=== PATIENT | male | born 1980 | race Hispanic/Latino ===

== ENCOUNTER → 2023-10-22 | Outpatient (CLI) | payer OTHER ==
[~2023-10-22] VITALS: Ht 177.8 cm; Wt 161.6 kg
[2023-10-22 14:55] VITALS: BP 163/94; PULSE 64; RESP 20
[2023-10-22 14:56] LABS: BASOPHILS # (AUTO) 0.04 K/uL (0.00-0.20); BASOPHILS % (AUTO) 0.6 % (0.0-5.0); EOSINOPHILS # (AUTO) 0.15 K/uL (0.00-0.70); EOSINOPHILS % (AUTO) 2.1 % (0.0-8.0); HEMATOCRIT 44.8 % (42-54); IMMATURE GRANULOCYTE ABSOLUTE 0.04 K/uL (0-1); LYMPHOCYTES # (AUTO) 1.9 K/uL (1.0-4.8); MEAN CORPUSCULAR HEMOGLOBIN 22.4 pg (27.0-33.0); MEAN CORPUSCULAR VOLUME 72.1 fL (79-99); MONOCYTES # (AUTO) 0.6 K/uL (0.1-1.0); MONOCYTES % (AUTO) 8.4 % (3.0-13.0); NEUTROPHILS # (AUTO) 4.4 K/uL (1.8-7.7); NEUTROPHILS % (AUTO) 61.3 % (40.0-77.0); PLATELET COUNT (AUTO) 245 K/uL (130-400); RED BLOOD CELL COUNT(AUTO) 6.21 MIL/uL (4.50-6.20); RED CELL DISTRIBUTION WIDTH 18.7 % (11.0-15.5); WHITE BLOOD COUNT (AUTO) 7.1 K/uL (4.8-10.8)
[2023-10-22 15:08] LABS: INR <= 0.93 (0.85-1.15); PROTHROMBIN TIME 10.6 SEC (9.6-11.6)
[2023-10-22 15:09] LABS: PARTIAL THROMBOPLASTIN TIME 27.1 SEC (26.3-35.5)
[2023-10-22 15:22] LABS: ALBUMIN 3.8 g/dL (3.5-5.0); BILIRUBIN,TOTAL 0.7 mg/dL (0.2-1.0); TOTAL PROTEIN, SERUM 7.7 g/dL (6.0-8.3)
== END | disposition home or self-care (01) ==
LOC: DAH 10:00 → EDSTATUS 14:00
PROVIDERS: ATTEND Surgery
DX: K51.918 Ulcerative colitis, unspecified with other complication (principal)
CPT/HCPCS: 86900; 80053; 85025; 85610; 85730; 86850; 86901; 36415; 93005; A6260

== ENCOUNTER 2023-11-02 17:00 | Inpatient (IN) | payer OTHER ==
[~2023-11-02] VITALS: Ht 180.3 cm; Wt 160.9 kg
[2023-11-02 13:39] LABS: BASOPHILS # (AUTO) 0.03 K/uL (0.00-0.20); BASOPHILS % (AUTO) 0.5 % (0.0-5.0); EOSINOPHILS # (AUTO) 0.21 K/uL (0.00-0.70); EOSINOPHILS % (AUTO) 3.3 % (0.0-8.0); HEMATOCRIT 43.9 % (42-54); IMMATURE GRANULOCYTE ABSOLUTE 0.02 K/uL (0-1); LYMPHOCYTES % (AUTO) 31.1 % (21.0-51.0); MEAN CORPUSCULAR HEMOGLOBIN 22.7 pg (27.0-33.0); MEAN CORPUSCULAR HGB CONC 30.8 g/dL (32.0-36.0); MEAN CORPUSCULAR VOLUME 73.9 fL (79-99); MONOCYTES # (AUTO) 0.6 K/uL (0.1-1.0); MONOCYTES % (AUTO) 8.7 % (3.0-13.0); NEUTROPHILS # (AUTO) 3.5 K/uL (1.8-7.7); NEUTROPHILS % (AUTO) 56.1 % (40.0-77.0); PLATELET COUNT (AUTO) 224 K/uL (130-400); RED BLOOD CELL COUNT(AUTO) 5.94 MIL/uL (4.50-6.20); RED CELL DISTRIBUTION WIDTH 18.2 % (11.0-15.5); WHITE BLOOD COUNT (AUTO) 6.3 K/uL (4.8-10.8)
[2023-11-02 13:50] LABS: INR <= 0.93 (0.85-1.15); PROTHROMBIN TIME 10.5 SEC (9.6-11.6)
[2023-11-02 13:53] LABS: ALBUMIN 3.5 g/dL (3.5-5.0); BILIRUBIN,TOTAL 0.4 mg/dL (0.2-1.0); POTASSIUM 4.2 mmol/L (3.5-5.1); TOTAL PROTEIN, SERUM 7.3 g/dL (6.0-8.3)
[2023-11-02 14:04] VITALS: BP 170/84; PULSE 67; RESP 18
[2023-11-06] VITALS (21 sets, daily range): BP systolic 132–183; BP diastolic 60–102; PULSE 69–94; RESP 12–23; O2SAT 95
[2023-11-06] MEDS: MEROPENEM 1 GM VIAL IVPB SCH (08:00)
[2023-11-06] MEDS: LACTATED RINGERS 1000ML 1,000 ML IV ONE (09:02)
[2023-11-06] MEDS: MEROPENEM 1 GM VIAL ONE (09:02)
[2023-11-06] MEDS ORDERED: LIDOCAINE PF 100MG/5ML (2%) SYRINGE 5ML ONE (12:13)
[2023-11-06] MEDS ORDERED: DEXAMETHASONE SOD PHOSPHATE 10MG/ML 1ML VIAL ONE (12:13)
[2023-11-06] MEDS ORDERED: MIDAZOLAM HCL 1 MG/ML 2ML VIAL ONE (12:15)
[2023-11-06] MEDS ORDERED: GLYCOPYRROLATE 0.2 MG/ML 5 ML VIAL ONE (12:15)
[2023-11-06] MEDS ORDERED: NEOSTIGMINE METHYLSULFATE 1MG/ML IV ONE (12:15)
[2023-11-06] MEDS ORDERED: SUCCINYLCHOLINE CHLORIDE 20 MG/ML 10 ML VIAL ONE (12:15)
[2023-11-06] MEDS ORDERED: ONDANSETRON 4MG INJ ONE ×3 (12:15→20:34)
[2023-11-06] MEDS ORDERED: PROPOFOL 10 MG/ML 20ML VIAL IV ONE (12:15)
[2023-11-06] MEDS ORDERED: ROCURONIUM BROMIDE 10MG/1ML 5ML VL ONE ×3 (12:16→17:56)
[2023-11-06] MEDS ORDERED: FENTANYL CITRATE PF 50 MCG/1 ML 5ML AMP IV ONE (12:16)
[2023-11-06] MEDS ORDERED: BUPIVACAINE/PF 0.5% 30ML VIAL ONE (12:22)
[2023-11-06] MEDS ORDERED: LIDOCAINE HCL 1% 20 ML VIAL ONE (12:22)
[2023-11-06] MEDS: LIDOCAINE HCL 1% 20 ML VIAL MISC ONE (12:49)
[2023-11-06] MEDS: BUPIVACAINE/PF 0.5% 30ML VIAL INJ ONE ×2 (12:51→13:23)
[2023-11-06] MEDS: MEROPENEM 1 GM VIAL IVPB ONE (12:55)
[2023-11-06] MEDS: INDOCYANINE GREEN 25 MG VIAL IJ ONE (13:16)
[2023-11-06] MEDS: LIDOCAINE HCL 1% 20 ML VIAL INJ ONE (13:23)
[2023-11-06] MEDS: SUGAMMADEX SODIUM 200 MG/2 ML VIAL IV ONE (19:51)
[2023-11-06] MEDS ORDERED: FENTANYL CITRATE PF 50 MCG/1 ML 2ML VIAL ONE (20:35)
[2023-11-06] MEDS ORDERED: ACETAMINOPHEN 650 MG SUPPOSITORY RC SCH (21:00)
[2023-11-06] MEDS ORDERED: ACETAMINOPHEN 650 MG SUPPOSITORY RC PRN (21:00)
[2023-11-06] MEDS: ONDANSETRON 4MG INJ ONE (21:54)
[2023-11-06] MEDS: ACETAMINOPHEN 1,000 MG/100 ML VIAL IV ONE (21:55)
[2023-11-06] MEDS: MEPERIDINE-PF 25 MG/ML SYG ONE (21:55)
[2023-11-06] MEDS: LABETALOL 20MG SYG IV ONE (22:29)
[2023-11-06] MEDS: HYDROMORPHONE 1 MG INJ ONE (22:30)
[2023-11-06] MEDS: GABAPENTIN 100 MG CAPSULE PO SCH (23:39)
[2023-11-07] VITALS (14 sets, daily range): BP systolic 133–183; BP diastolic 65–102; PULSE 86–100; RESP 17–20; O2SAT 95–96
[2023-11-07] MEDS: LACTATED RINGERS 1000ML 1,000 ML IV SCH (00:04)
[2023-11-07] MEDS: ONDANSETRON 4MG INJ IVP PRN (00:48)
[2023-11-07] MEDS: HYDROMORPHONE 0.5 MG SYG (0.5MG/0.5ML) IVP PRN (02:39)
[2023-11-07 04:00] LABS: BASOPHILS # (AUTO) 0.01 K/uL (0.00-0.20); BASOPHILS % (AUTO) 0.1 % (0.0-5.0); IMMATURE GRANULOCYTE ABSOLUTE 0.07 K/uL (0-1); LYMPHOCYTES # (AUTO) 0.8 K/uL (1.0-4.8); LYMPHOCYTES % (AUTO) 6.6 % (21.0-51.0); MEAN CORPUSCULAR HEMOGLOBIN 22.9 pg (27.0-33.0); MEAN CORPUSCULAR HGB CONC 31.4 g/dL (32.0-36.0); MONOCYTES % (AUTO) 8.3 % (3.0-13.0); NEUTROPHILS # (AUTO) 9.8 K/uL (1.8-7.7); NEUTROPHILS % (AUTO) 84.4 % (40.0-77.0); PLATELET COUNT (AUTO) 224 K/uL (130-400); RED BLOOD CELL COUNT(AUTO) 5.89 MIL/uL (4.50-6.20); RED CELL DISTRIBUTION WIDTH 18.4 % (11.0-15.5); WHITE BLOOD COUNT (AUTO) 11.6 K/uL (4.8-10.8)
[2023-11-07] MEDS ORDERED: POTASSIUM CHLORIDE 20MEQ/100ML 100 ML IV PRN (04:30)
[2023-11-07] MEDS ORDERED: GLUCAGON 1MG KIT 1 MG ML IM PRN (04:30)
[2023-11-07] MEDS ORDERED: MAGNESIUM 2GM PREMIX 50ML 50 ML IV PRN (04:30)
[2023-11-07] MEDS ORDERED: KCL 20 MEQ ERTAB PO PRN (04:30)
[2023-11-07] MEDS ORDERED: DEXTROSE 50%-WATER 50 ML DISP.SYRIN IV PRN (04:30)
[2023-11-07] MEDS ORDERED: POTASSIUM CHLORIDE 10% ELIXIR 20 MEQ/15 ML UDCUP PO PRN (04:30)
[2023-11-07 04:35] LABS: CREATININE 1.2 mg/dL (0.5-1.5); POTASSIUM 3.9 mmol/L (3.5-5.1)
[2023-11-07 04:39] LABS: THYROID STIMULATING HORMONE 0.58 uIU/mL (0.36-3.74)
[2023-11-07 04:47] LABS: HEMOGLOBIN A1C 7.2 % (4.0-6.0)
[2023-11-07] MEDS: INSULIN HUMULIN R 100 UNIT/ML 3ML SQ SCH (06:43)
[2023-11-07] MEDS: OXYCODONE HCL 5 MG TAB PO PRN (08:09)
[2023-11-07] MEDS: FAMOTIDINE 20MG VIAL IV SCH (08:11)
[2023-11-07] MEDS: ENOXAPARIN SODIUM 40 MG/0.4 ML SYRINGE SQ SCH (08:12)
[2023-11-07] MEDS ORDERED: ACETAMINOPHEN WITH CODEINE 1 TAB TAB PO PRN (11:00)
[2023-11-07] MEDS: SIMETHICONE 80 MG TAB.CHEW PO SCH (12:07)
[2023-11-07] MEDS: HYDRALAZINE 20MG/ML VIAL IV PRN (16:40)
[2023-11-07] MEDS: ACETAMINOPHEN WITH CODEINE 1 TAB TAB PO PRN (19:34)
[2023-11-08 04:41] VITALS: BP 155/89; PULSE 91; RESP 19
[2023-11-08] MEDS: METRONIDAZOLE 500MG/100ML BAG 100 ML IVPB SCH (05:10)
[2023-11-08 05:16] LABS: BASOPHILS # (AUTO) 0.03 K/uL (0.00-0.20); BASOPHILS % (AUTO) 0.3 % (0.0-5.0); EOSINOPHILS # (AUTO) 0.01 K/uL (0.00-0.70); EOSINOPHILS % (AUTO) 0.1 % (0.0-8.0); HEMATOCRIT 41.5 % (42-54); IMMATURE GRANULOCYTE ABSOLUTE 0.05 K/uL (0-1); LYMPHOCYTES # (AUTO) 1.3 K/uL (1.0-4.8); LYMPHOCYTES % (AUTO) 12.7 % (21.0-51.0); MEAN CORPUSCULAR HEMOGLOBIN 23.2 pg (27.0-33.0); MEAN CORPUSCULAR HGB CONC 31.3 g/dL (32.0-36.0); MEAN CORPUSCULAR VOLUME 74.1 fL (79-99); MONOCYTES % (AUTO) 9.9 % (3.0-13.0); NEUTROPHILS # (AUTO) 8.1 K/uL (1.8-7.7); NEUTROPHILS % (AUTO) 76.5 % (40.0-77.0); PLATELET COUNT (AUTO) 201 K/uL (130-400); RED CELL DISTRIBUTION WIDTH 18.6 % (11.0-15.5); WHITE BLOOD COUNT (AUTO) 10.5 K/uL (4.8-10.8)
[2023-11-08 05:20] LABS: MAGNESIUM 1.9 mg/dL (1.80-2.40)
[2023-11-08 08:20] VITALS: BP 162/97; PULSE 93; RESP 18
[2023-11-08 11:00] VITALS: BP 157/98; PULSE 81; RESP 18
[2023-11-08] MEDS: LEVOFLOXACIN 750 MG/D5W 150 ML 150 ML IV SCH (11:01)
[2023-11-08] MEDS: DIPHENOXYLATE HCL/ATROPINE 2.5/0.025 MG TAB PO SCH (11:05)
[2023-11-08 16:41] VITALS: BP 143/100; PULSE 77; RESP 18
[2023-11-08 19:15] VITALS: O2SAT 98
[2023-11-08 20:00] VITALS: BP 142/76; PULSE 79; RESP 20
[2023-11-09] VITALS: BP 157/22; PULSE 89; RESP 20
[2023-11-09 04:00] VITALS: BP 157/86; PULSE 74; RESP 18
[2023-11-09 04:28] LABS: BASOPHILS # (AUTO) 0.06 K/uL (0.00-0.20); BASOPHILS % (AUTO) 0.6 % (0.0-5.0); EOSINOPHILS # (AUTO) 0.12 K/uL (0.00-0.70); EOSINOPHILS % (AUTO) 1.1 % (0.0-8.0); HEMATOCRIT 40.5 % (42-54); IMMATURE GRANULOCYTE ABSOLUTE 0.04 K/uL (0-1); LYMPHOCYTES # (AUTO) 2.1 K/uL (1.0-4.8); LYMPHOCYTES % (AUTO) 19.8 % (21.0-51.0); MEAN CORPUSCULAR HEMOGLOBIN 23.3 pg (27.0-33.0); MEAN CORPUSCULAR HGB CONC 32.1 g/dL (32.0-36.0); MEAN CORPUSCULAR VOLUME 72.5 fL (79-99); MONOCYTES % (AUTO) 9.3 % (3.0-13.0); NEUTROPHILS # (AUTO) 7.3 K/uL (1.8-7.7); NEUTROPHILS % (AUTO) 68.8 % (40.0-77.0); PLATELET COUNT (AUTO) 224 K/uL (130-400); RED BLOOD CELL COUNT(AUTO) 5.59 MIL/uL (4.50-6.20); RED CELL DISTRIBUTION WIDTH 18.1 % (11.0-15.5); WHITE BLOOD COUNT (AUTO) 10.6 K/uL (4.8-10.8)
[2023-11-09 04:39] LABS: MAGNESIUM 1.9 mg/dL (1.80-2.40); POTASSIUM 3.6 mmol/L (3.5-5.1)
[2023-11-09 08:00] VITALS: BP 154/86; PULSE 71; RESP 19; O2SAT 94
[2023-11-09] MEDS: AMLODIPINE 5 MG TAB PO ONE (11:57)
[2023-11-09 12:00] VITALS: BP 143/90; PULSE 68; RESP 19
[2023-11-10] MEDS ORDERED: AMLODIPINE 5 MG TAB PO SCH (09:00)
== END 2023-11-09 13:00 | disposition home or self-care (01) | DRG 330 ==
LOC: DAHIP 11-06 08:17 → 4DH 11-06 23:00
PROVIDERS: ADMIT Surgery; ATTEND Surgery
PROC: 0D1B0Z4 Bypass Ileum to Cutaneous, Open Approach (ICD-10-PCS; 2023-11-06)
PROC: 0DJD8ZZ Inspection of Lower Intestinal Tract, Via Natural or Artificial Opening Endoscopic (ICD-10-PCS; 2023-11-06)
PROC: 8E0W0CZ Robotic Assisted Procedure of Trunk Region, Open Approach (ICD-10-PCS; 2023-11-06)
PROC: 0DTE0ZZ Resection of Large Intestine, Open Approach (ICD-10-PCS; principal; 2023-11-06 12:49)
DX: K51.812 Other ulcerative colitis with intestinal obstruction (principal); Z68.42 Body mass index [BMI] 45.0-49.9, adult; E66.01 Morbid (severe) obesity due to excess calories; I10 Essential (primary) hypertension; K66.0 Peritoneal adhesions (postprocedural) (postinfection); Z82.3 Family history of stroke; Z82.49 Family history of ischemic heart disease and other diseases of the circulatory system; Z83.3 Family history of diabetes mellitus
CPT/HCPCS: 36415; 45330; 80048; 80053; 80061; 82948; 83036; 83605; 83735; 84145; 84443; 85025; 85610; 85730; 86850; 86900; 86901; 93005; A4344; G0378; J0330; J0360; J1100; J1170; J1650; J1815; J1956; J2001; J2175; J2185; J2250; J2405; J2704; J2710; J3010; J3490; J7120; A4215; A4221; A4222; A4223; A4600; A4649; A4663; A4930; A6260; C1769; G0168; J0665